=== PATIENT | female | born 1965 | race Caucasian/White ===

== ENCOUNTER 2018-04-18 15:37 | Emergency (ER) | payer SELFPAY ==
[~2018-04-18] VITALS: Ht 157.5 cm; Wt 53.6 kg
[2018-04-18 16:05] VITALS: Ht 157.5 cm; Wt 53.6 kg
[2018-04-18] MEDS ORDERED: ULTRAM50 MG (16:06)
[2018-04-18] MEDS ORDERED: VALIUM 2 MG TAB2 MG (16:06)
[2018-04-18] MEDS ORDERED: ADDERALL (16:06)
[2018-04-18 21:14] VITALS: BP 116/60
== END 2018-04-18 21:15 | disposition home or self-care (01) ==
LOC: D.ER 15:37
DX: S09.93XA Unspecified injury of face, initial encounter (principal); Y04.2XXA Assault by strike against or bumped into by another person, initial encounter; Y93.89 Activity, other specified; Y92.019 Unspecified place in single-family (private) house as the place of occurrence of the external cause; F17.200 Nicotine dependence, unspecified, uncomplicated

== ENCOUNTER 2021-02-16 21:22 | Emergency (ER) | payer SELFPAY ==
[~2021-02-16] VITALS: Ht 157.5 cm; Wt 54.5 kg
[~2021-02-16 21:22] MED LIST: ADDERALL; ULTRAM50 MG; VALIUM 2 MG TAB2 MG
[2021-02-16 21:33] VITALS: Ht 157.5 cm; Wt 54.5 kg
[2021-02-16 21:53] LABS: UDS - AMPHET POSITIVE QUAL (NEGATIVE); UDS - BARB NEGATIVE QUAL (NEGATIVE); UDS - BENZO POSITIVE QUAL (NEGATIVE); UDS - COCAINE NEGATIVE QUAL (NEGATIVE); UDS - OPIATE POSITIVE QUAL (NEGATIVE); UDS - PCP NEGATIVE QUAL (NEGATIVE); UDS - THC NEGATIVE QUAL (NEGATIVE)
[2021-02-16 22:04] LABS: BILIRUBIN NEGATIVE (NEGATIVE); KETONE NEGATIVE (NEGATIVE); NITRITE POSITIVE (NEGATIVE); UROBILINOGEN NORMAL mg/dL (< 2)
[2021-02-16 22:06] LABS: BACTERIA MANY HPF (NONE SEEN); SQUAMOUS EPITHELIAL 0-5 HPF (0-4); WHITE CELLS - URINE 0-5 HPF (0-4)
[2021-02-16 22:44] LABS: BASOPHILS 0.6 % (0-2); EOSINOPHILS 2.9 % (0-7); HEMATOCRIT 38.9 % (36.0-48.0); LYMPHOCYTES 30.5 % (15-50); MCH 31.4 pg (26.0-34.0); MCHC 33.4 g/dL (31.0-37.0); MEAN PLATELET VOLUME 6.7 fL (7.4-10.4); MONOCYTES 5.8 % (2-11); NEUTROPHILS 60.2 % (40-80); PLATELET COUNT 367 10x3/uL (130-400); RBC 4.14 10x6/uL (4.00-5.40); RDW 14.4 % (11.5-14.5); WBC 9.3 10x3/uL (4.8-10.8)
[2021-02-16 23:00] LABS: ANION GAP 13.3 mmol/L (8-16); CALCIUM 8.7 mg/dL (8.5-10.1); CARBON DIOXIDE 26.1 mmol/L (21.0-32.0); CREATININE - SERUM 1.1 mg/dL (0.6-1.3); POTASSIUM - SERUM 3.4 mmol/L (3.5-5.1)
[2021-02-16 23:04] LABS: ALBUMIN 3.4 g/dL (3.4-5.0); BILIRUBIN - TOTAL 0.2 mg/dL (0.2-1.3); PROTEIN - SERUM 6.9 g/dL (6.4-8.2)
[2021-02-17] MEDS ORDERED: OMNICEF300 MG PO (04:09)
--- NOTE | 2021-02-17 04:23 | NUR ---
DR. GUILLAUME NOTIFIED AND SITTER ORDERED. SITTER AT BEDSIDE. NOTIFIED CHARGE NURSE AND ATTENDING IN REGARDS TO ASSESSMENT FINDINGS. RESOURCES GIVEN TO PT AND SAFETY PLAN INITIATED.
[2021-02-17 05:45] VITALS: BP 128/83
== END 2021-02-17 05:53 ==
LOC: D.ER 21:22
PROVIDERS: Family Medicine
DX: R45.851 Suicidal ideations (principal); F19.10 Other psychoactive substance abuse, uncomplicated; N39.0 Urinary tract infection, site not specified; S51.812A Laceration without foreign body of left forearm, initial encounter; W45.8XXA Other foreign body or object entering through skin, initial encounter; Y93.9 Activity, unspecified; Y92.9 Unspecified place or not applicable